=== PATIENT | female | born 1930 | race African-American/Black ===

== ENCOUNTER 2020-11-18 12:43 | Inpatient (IN) | payer MEDICARE ==
[~2020-11-18] VITALS: Ht 162.6 cm; Wt 51.3 kg
[~2020-11-18 12:43] MED LIST: HYDR-4001 MT
[2020-11-18] MEDS ORDERED: HYDRALAZINE 20MG/ML VIAL IV ONE ×2 (14:30→15:30)
[2020-11-18 14:40] LABS: CHLORIDE 103 mEq/L (98-107)
[2020-11-18 14:41] LABS: HEMATOCRIT. 32.8 % (36.0-48.0); MEAN CORPUSCULAR HEMOGLOBIN 28.7 pg (28.0-32.0); MEAN CORPUSCULAR VOLUME 85.5 fL (81.0-99.0); MEAN PLATELET VOLUME 8.4 fl (7.4-10.4); PLATELET 102 x1000/uL (130-400); RED BLOOD CELL COUNT 3.84 mill/uL (4.2-5.4); RED CELL DISTRIBUTION WIDTH 16.8 % (11.6-14.6)
[2020-11-18 14:43] LABS: INR 1.1; PROTHROMBIN TIME 11.4 sec (9.6-11.0)
[2020-11-18 16:10] LABS: PLATELET ESTIMATE DECREASED
[2020-11-18] MEDS: HYDROCODONE/ACETAMINOPHEN 5/325MG TABLET PO PRN ×2 (18:12→22:12)
[2020-11-18] MEDS ORDERED: NALOXONE HCL 0.4MG/ML VIAL IV PRN (18:15)
[2020-11-18] MEDS ORDERED: MORPHINE SULFATE 2 MG/ML CPJ (NOT FOR IM USE) IV PRN (23:00)
[2020-11-19] VITALS (7 sets, daily range): BP systolic 118–162; BP diastolic 54–82
[2020-11-19] MEDS ORDERED: LOSA25TA26 MT (04:43)
[2020-11-19] MEDS ORDERED: ONDANSETRON HCL 4MG/2ML INJ IV PRN (05:00)
[2020-11-19] MEDS ORDERED: ENOXAPARIN 40MG/0.4ML SYR SUBCUT SCH (05:00)
[2020-11-19] MEDS ORDERED: CLONIDINE 0.1MG TABLET PO PRN (05:00)
[2020-11-19] MEDS ORDERED: ZOLPIDEM TARTRATE 5MG TABLET PO PRN (05:00)
[2020-11-19] MEDS ORDERED: MORPHINE SULFATE 2 MG/ML CPJ (NOT FOR IM USE) IV PRN (05:00)
[2020-11-19] MEDS ORDERED: ACETAMINOPHEN 325MG TABLET PO PRN (05:00)
[2020-11-19] MEDS: FOLIC ACID/VITAMIN B COMP W-C TABLET PO SCH (08:54)
[2020-11-19] MEDS: SEVELAMER CARBONATE 800 MG TABLET PO SCH ×3 (08:54→18:13)
[2020-11-19] MEDS: AMLODIPINE 10MG TABLET PO SCH (08:54)
[2020-11-19] MEDS: LOSARTAN POTASSIUM 50 MG TABLET PO SCH (08:54)
[2020-11-19] MEDS: FLUOXETINE HCL 20MG CAPSULE PO SCH (08:55)
[2020-11-19] MEDS: ENOXAPARIN 30MG/0.3ML SYR SUBCUT SCH (08:58)
[2020-11-19] MEDS ORDERED: DOCUSATE SODIUM 100MG CAPSULE PO PRN (10:15)
[2020-11-19] MEDS ORDERED: IPRATROPIUM/ALBUTEROL 0.5-3(2.5)MG/3ML NEB HHN PRN (10:15)
[2020-11-19 10:50] LABS: HEMATOCRIT 30.7 % (36.0-48.0); HEMOGLOBIN 10.4 g/dL (12.0-16.0); MEAN CORPUSCULAR HEMOGLOBIN 29.4 pg (28.0-32.0); MEAN CORPUSCULAR VOLUME 86.7 fL (81.0-99.0); PLATELET 117 x1000/uL (130-400); RED BLOOD CELL COUNT 3.54 mill/uL (4.2-5.4); RED CELL DISTRIBUTION WIDTH 16.6 % (11.6-14.6)
[2020-11-19 11:04] LABS: PHOSPHORUS 2.6 mg/dL (2.5-4.9)
[2020-11-19 19:21] LABS: HEPATITIS B SURFACE ANTIGEN NEGATIVE
[2020-11-19 19:50] LABS: HEPATITIS A AB IGM NEGATIVE (NEGATIVE)
[2020-11-20] VITALS: BP 155/66
[2020-11-20] MEDS ORDERED: OMEPRAZOLE 20MG CAPSULE EXTENDED RELEASE PO SCH (07:30)
[2020-11-20 08:00] VITALS: BP 128/68
[2020-11-20] MEDS: FOLIC ACID/VITAMIN B COMP W-C TABLET PO SCH (08:39)
[2020-11-20] MEDS: SEVELAMER CARBONATE 800 MG TABLET PO SCH ×2 (08:39→13:44)
[2020-11-20] MEDS: FLUOXETINE HCL 20MG CAPSULE PO SCH (08:39)
[2020-11-20] MEDS: LOSARTAN POTASSIUM 50 MG TABLET PO SCH (08:39)
[2020-11-20] MEDS: AMLODIPINE 10MG TABLET PO SCH (08:40)
[2020-11-20] MEDS: ENOXAPARIN 30MG/0.3ML SYR SUBCUT SCH (08:40)
[2020-11-20] MEDS ORDERED: RISPERIDONE 0.5MG TABLET PO SCH (09:00)
[2020-11-20] MEDS ORDERED: LOSARTAN POTASSIUM 50 MG TABLET PO SCH (09:00)
[2020-11-20 12:00] VITALS: BP 142/63
[2020-11-20 13:20] LABS: HEMATOCRIT. 34.8 % (36.0-48.0); HEMOGLOBIN. 11.4 g/dL (12.0-16.0); MEAN CORPUSCULAR HEMOGLOBIN 28.6 pg (28.0-32.0); MEAN CORPUSCULAR VOLUME 87.8 fL (81.0-99.0); MEAN PLATELET VOLUME 8.2 fl (7.4-10.4); PLATELET 147 x1000/uL (130-400); RED BLOOD CELL COUNT 3.97 mill/uL (4.2-5.4); RED CELL DISTRIBUTION WIDTH 16.7 % (11.6-14.6)
[2020-11-20 13:34] LABS: CHLORIDE 106 mEq/L (98-107)
[2020-11-20 13:40] LABS: PHOSPHORUS 2.3 mg/dL (2.5-4.9)
[2020-11-20 13:41] LABS: LDL CHOLESTEROL 101 mg/dL (5-100)
[2020-11-20 13:43] LABS: HDL CHOLESTEROL 82 mg/dL (40-59)
[2020-11-20 13:48] LABS: T4 FREE 1.12 ng/dL (0.76-1.46)
[2020-11-20] MEDS ORDERED: AMLO5TAB88 PO (14:10)
[2020-11-20] MEDS ORDERED: LOSA50TA3 PO (14:10)
[2020-11-20 14:49] VITALS: BP 177/78
[2020-11-20 15:34] VITALS: BP 177/78
[2020-11-20] MEDS ORDERED: AMLODIPINE 5MG TABLET PO SCH (17:00)
[2020-11-21 10:49] LABS: PLATELET ESTIMATE NORMAL
== END 2020-11-20 18:14 | disposition home or self-care (01) | DRG 73 ==
LOC: ER 12:43 → MICUSO 16:23 → EDBEDREQTM 16:27 → EDBEDREQ 16:27 → 5EST 11-19 03:10
PROVIDERS: ADMIT Internal Medicine; ATTEND Internal Medicine
PROC: 5A1D70Z Performance of Urinary Filtration, Intermittent, Less than 6 Hours Per Day (ICD-10-PCS; principal; 2020-11-19)
DX: G90.8 Other disorders of autonomic nervous system (principal); N18.6 End stage renal disease; I12.0 Hypertensive chronic kidney disease with stage 5 chronic kidney disease or end stage renal disease; N17.9 Acute kidney failure, unspecified; D69.6 Thrombocytopenia, unspecified; E87.5 Hyperkalemia; E78.5 Hyperlipidemia, unspecified; R29.6 Repeated falls; D64.9 Anemia, unspecified; F03.90 Unspecified dementia, unspecified severity, without behavioral disturbance, psychotic disturbance, mood disturbance, and anxiety; I16.0 Hypertensive urgency; Z82.49 Family history of ischemic heart disease and other diseases of the circulatory system; Z86.73 Personal history of transient ischemic attack (TIA), and cerebral infarction without residual deficits; Z99.2 Dependence on renal dialysis; Z79.1 Long term (current) use of non-steroidal anti-inflammatories (NSAID); Z79.899 Other long term (current) drug therapy
CPT/HCPCS: 36415; 71045; 80048; 80053; 80061; 80076; 83735; 84100; 84439; 84443; 84484; 85025; 85027; 86705; 86709; 86803; 87340; 93005; 93306; 93970; 97162; 97165; 99291; J0360; J1650; J2270